=== PATIENT | female | born 1945 | race Caucasian/White ===

== ENCOUNTER → 2016-09-05 | Outpatient (CLI) | payer OTHER ==
[~2016-09-05] MED LIST: ACETAMINOPHEN325 M1 PO; ADULT LOW DOSE81 MG PO; ALDACTONE25 MG PO; ASACOL400 MG PO; BACTRIM DS TAB1 EACH PO; BIOTIN5 M1 PO; CIPROFLOXACIN500 M1 PO; CIPROFLOXACIN500 M3 PO; ENALAPRIL-HCTZ1 EACH PO; FISH OIL 1,0001 EAC5 PO; FLAGYL500 MG PO; FLORANEX TABLE1 EACH PO; HAIR, SKIN & N1 EAC1 PO; HUMIRA40 MG/0.1 SQ; IBUPROFEN 200200 M1 PO; IMURAN 50MG TAB50 M1 PO; LO-DOSE ASPIRIN81 M1 PO; MAG DELAY64 MG PO; MULTI VITAMIN1 EACH PO; OMEGA 3-6-9 CO1 EACH PO; ONDANSETRON ODT4 MG PO; PERCOCET 7.5-31 EACH PO; PHENERGAN 25 MG25 M1 PO; POTASSIUM20 PO; PREDNISONE 10 M10 M1; PREDNISONE 10 M10 M1 PO; PREVALITE PACKE1 PKT PO; PROTONIX40 M2 PO; SEPTRA DS TABL1 EACH PO; SLOW-MAG64 MG PO; SYMAX0.125 MG PO; SYNTHROID137 MCG PO; VITAMIN D31000 UNI2 PO; XANAX 0.5 MG0.5 M1 PO; ZOFRAN 4 MG ORAL4 M1 DIS; [UNRECOGNIZED DRUG - OTHER] PO
== END ==
LOC: CAT 12:20
DX: R07.9 Chest pain, unspecified (principal); R91.8 Other nonspecific abnormal finding of lung field; J98.11 Atelectasis